=== PATIENT | male | born 1990 | race Caucasian/White ===

== ENCOUNTER → 2021-06-04 09:45 | Outpatient (CLI) | payer OTHER, SELFPAY ==
--- NOTE | 2021-06-04 | DI.MRI.S_ITS ---
PROCEDURE: MR KNEE LT WO CON INDICATIONS: Pain in left knee TECHNIQUE: Noncontrast sagittal PD fast spin echo and T2 fast spin echo with fat saturation, sagittal 3-D FLASH with fat saturation; coronal T1 spin echo and PD fast spin echo with fat saturation, and axial PD fast spin echo with fat saturation through the knee. COMPARISON: None. FINDINGS: Menisci: Medial meniscus: Intact. Lateral meniscus: Intact. Cruciate ligaments: Anterior cruciate ligament: Intact. Posterior cruciate ligament: Intact. Medial structures: The medial collateral ligament: Intact. Semimembranosus tendon: Intact. Visualized pes anserinus tendons: Intact. Bursal fluid: none. Lateral structures: The lateral collateral ligament intact. Biceps femoris tendon appears intact. Popliteus tendon grossly unremarkable. Iliotibial band appears intact. Anterior structures: Quadriceps tendon: Intact. Medial patellofemoral ligament: Intact. Lateral patellofemoral ligament: Intact. Patellar tendon: Proximal thickening and tendinopathy. Anterior soft tissues: Prepatellar and superficial infrapatellar subcutaneous edema/fluid. Deep infrapatellar region: Normal. Bones and cartilage: Marrow: No focal marrow contusion or discrete low signal fracture line. Medial compartment: No focal chondral defect. Lateral compartment: No chondral defect identified. Patellofemoral compartment: Mild intrasubstance signal change of the patellar cartilage without focal defect. Joint space: Effusion: No pathologic knee joint effusion. Popliteal fossa: Small Cline's cyst measuring 1-2 cm in the cephalocaudal dimension. Loose bodies: None. IMPRESSION: Severe proximal patellar tendinopathy and thickening. Small Cline's cyst Dictated by: Jamaal Reagan M.D. on 06/04/2021 at 11:57 Approved by: Jamaal Reagan M.D. on 06/04/2021 at 12:11
== END ==
DX: M25.562 Pain in left knee (principal); M71.22 Synovial cyst of popliteal space [Baker], left knee
CPT/HCPCS: 73721